=== PATIENT | male | born 2005 | race Caucasian/White ===

== ENCOUNTER 2024-01-17 23:51 | Emergency (ER) | payer MEDICAID ==
[~2024-01-17] VITALS: Ht 185.4 cm; Wt 74.2 kg
[2024-01-17 23:53] VITALS: BP 109/70; PULSE 55; RESP 16; TEMP 98.5; O2SAT 98
[2024-01-18 00:41] LABS: STREP A SCREEN NEGATIVE (Neg)
[2024-01-18] MEDS: amox tr/potassium clavulanate 875/125mg TAB PO ONE (01:39)
[2024-01-18] MEDS: dexamethasone 4mg tablet PO ONE (01:39)
[2024-01-18] MEDS: acetaminophen 325mg tablet PO ONE (01:40)
[2024-01-18] MEDS: ibuprofen tablet 400 MG TABLET PO ONE (01:40)
[2024-01-18] MEDS: LIDOcaine 2% Viscous 15ml cup MM ONE (01:51)
[2024-01-18] MEDS ORDERED: PRED20TA PO (02:16)
[2024-01-18] MEDS ORDERED: AMOX-115 PO (02:16)
== END 2024-01-18 02:27 | disposition home or self-care (01) ==
LOC: ER 23:52
DX: J36 Peritonsillar abscess (principal)
CPT/HCPCS: 42700; 87081; 87880; 99284

== ENCOUNTER 2024-03-25 09:08 | Emergency (ER) | payer MEDICAID ==
[~2024-03-25] VITALS: Ht 188 cm; Wt 81.8 kg
[2024-03-25] MEDS ORDERED: PENI500T2 PO (10:28)
[2024-03-25] MEDS ORDERED: penicillin G benzathine 1.2 million unit/2ml syringe IM ONE (10:30)
[2024-03-25] MEDS: PENICILLIN G BENZATHINE 2,400,000 UNIT/4 ML SYRINGE IM ONE (10:46)
[2024-03-25 10:52] VITALS: BP 118/68; PULSE 80; RESP 18; TEMP 98.5; O2SAT 99
== END 2024-03-25 10:52 | disposition home or self-care (01) ==
LOC: ER 09:08
DX: J02.9 Acute pharyngitis, unspecified (principal)
CPT/HCPCS: 96372; 99283; J0561

== ENCOUNTER 2024-04-19 00:02 | Emergency (ER) | payer MEDICAID ==
[~2024-04-19] VITALS: Ht 188 cm; Wt 83.0 kg
[2024-04-19 00:07] VITALS: BP 128/58; PULSE 57; RESP 18; O2SAT 95
[2024-04-19] MEDS ORDERED: AMOX500C2 PO (02:32)
[2024-04-19] MEDS ORDERED: HYDR-3965 PO (02:32)
[2024-04-19 02:35] VITALS: TEMP 98.5
[2024-04-19] MEDS: amoxicillin 250mg capsule PO ONE (02:36)
[2024-04-19] MEDS: ibuprofen tablet 400 MG TABLET PO ONE (02:36)
[2024-04-19] MEDS: acetaminophen 325mg tablet PO ONE (02:37)
[2024-04-19] MEDS: ondansetron 4mg rapidly disintigrating tab PO ONE (02:37)
== END 2024-04-19 02:42 | disposition home or self-care (01) ==
LOC: ER 00:03
DX: K08.89 Other specified disorders of teeth and supporting structures (principal)
CPT/HCPCS: 99284

== ENCOUNTER 2024-08-22 08:29 | Emergency (ER) | payer MEDICAID ==
[~2024-08-22] VITALS: Ht 182.9 cm; Wt 85.4 kg
[2024-08-22 08:33] VITALS: BP 139/63; PULSE 96; RESP 16; TEMP 99.8; O2SAT 98
[2024-08-22 09:23] LABS: STREP A SCREEN NEGATIVE (Neg)
[2024-08-22] MEDS ORDERED: AMOX-580 PO (09:36)
--- NOTE | 2024-08-22 09:36 | Physician Documentation ---
History of Present Illness ~ Chief Complaint: Sore Throat Stated Complaint: SORE THROAT Time Seen by MD: 09:05 OK to notify your PCP?: Yes Primary Medical Doctor: NONE Source: patient Mode of Arrival: POV Exam Limitations: no limitations HPI 19-year-old male with chief complaint sore throat which he states started yesterday. He is concerned because he has a history of a peritonsillar abscess in January of last year and he states it feels the same but when he had the peritonsillar abscess he states he waited about 72hours before coming to the ER so he was trying to catch this earlier. Patient reports that when he was treated for the peritonsillar abscess he was given antibiotics but ended up returning 24 hours later due to not feeling any better and was then given an injection of dexamethasone which seem to give him the greatest benefit. He is hoping he can get another shot of dexamethasone today. He has an appointment to get established with ENT next month he states he had to wait six months but does have this appointment coming up. He states it hurts him to swallow but he is able to. He feels feverish but does not have a temperature. No pre arrival treatment. He denies neck pain, shortness of breath, headache, ear pain, chest pain, cough, rashes. Medication Reconciliation Allergies: Coded Allergies: No Known Allergies (Unverified , 01/18/24) Scheduled Amox Tr/Potassium Clavulanate 875/125 MG (Augmentin 875/125 MG), 1 TAB PO Q12H Past Medical History Past Medical History: *ENT* (peritonsillar abscess) Review of Systems All Other Systems at this time: Reviewed and Negative Physical Exam Vital Signs: Temperature: 99.8, Source: Oral, Heart Rate: 96, Respiratory Rate: 16, BP: 139/63, Pulse Oximetry: 98, Weight: 85.400 Oxygen Flow Rate: 0 Physical Exam GENERAL: Alert, no acute distress. HEENT: NCAT, EOMI, PERRL, ERYTHEMATOUS POSTERIOR PHARYNGEAL WALL AND TONSILS, TONSILS ARE ENLARGED, LEFT SLIGHTLY MORE THAN RIGHT, UVULA IS MIDLINE, VOICE SOUNDS NORMAL, NOT MUFFLED, SWALLOWING SECRETIONS NORMALLY. NECK: Supple, trachea midline. SUBMANDIBULAR LAD BILATERALLY WITH TTP, NO OTHER CERVICAL LAD. CARDIAC: Regular rate and rhythm, no murmurs, rubs, or gallops. Equal distal pulses. No lower extremity edema, cap refill less than 2 seconds. RESPIRATORY: Equal breath sounds, clear to auscultation bilaterally, no respiratory distress. MUSCULOSKELETAL: Normal gait. NEUROLOGICAL: Awake, alert, and oriented x 3. SKIN: Warm/dry, no pallor, no rash. PSYCH: Alert and appropriate. Affect congruent with mood. Speech is clear. Good eye contact. Progress Results/Orders Results/Orders Orders - DEUCE GRAMAJO Cult Throat + R/O Beta Strep (08/22/24 09:15) Dexamethasone Inj (Decadron 10mg/Ml Inj) (08/22/24 09:47) Completed Orders - DEUCE GRAMAJO Strep A Rapid (08/22/24 09:07) Vital Signs 08/22/24 08:33 Temp 99.8 Pulse 96 Resp 16 B/P (MAP) 139/63 Pulse Ox 98 O2 Flow Rate 0 Laboratory Tests Test 08/22/24 09:07 Group A Streptococcus Rapid Negative Medical Decision Making Throat Diff Dx: Considerations: Include: AIDS, Epiglottitis, Esophageal candidiasis, Hand foot mouth disease, Herpangina, Herpetic stomatitis, Herpes simplex, Infection mononucleosis, Immunodeficiency, Eladio's angina, Peritonsillar abscess, Peritonsillar cellulitis, Pharyngitis-diphtheria, Pharyngitis-strepococcal, Pharyngitis-viral, Thrush, URI, Other Additional Comment NO SWELLING OR BULGING OF SOFT PALATE, UVULA MIDLINE NO EVIDENCE TODAY FOR PERITONSILLAR ABSCESS, GIVEN HISTORY HOWEVER I TREATED WITH STEROIDS AND ANTIBIOTICS PER OUR RECORDS PATIENT'S PERITONSILLAR ABSCESS TREATED IN JANUARY 2024 WAS STREP NEGATIVE WELL. Departure Time of Disposition: 09:53 Disposition: HOME / SELF CARE / HOMELESS Impression: Primary Impression: Swelling of tonsil Additional Impression: History of peritonsillar abscess Condition: Stable Discharge Instructions: Tonsillitis Additional Instructions: given history of peritonsillar abscess and findings on exam, even though strep swab was negative, I am still going to treat you with antibiotics as when you had the peritonsillar abscess it was negative for strep as well antibiotic sent to pharmacy Referrals: NO PRIMARY CARE PROVIDER (PCP) Prescriptions Amox Tr/Potassium Clavulanate 875/125 MG (Augmentin 875/125 MG) 875 Mg-125 Mg Tablet 1 TAB PO Q12H for 10 Days, #20 TAB Prov: DEUCE GRAMAJO 08/22/24 Education Educated: Patient Educated regarding: diagnosis, treatment, need for follow up Signature Scribe Signature: Zachary Attestation: DEUCE SCHROEDER August 22, 2024 09:36
[2024-08-22] MEDS: dexamethasone sod phosphate 10mg/ml inj IM STA (09:57)
== END 2024-08-22 10:02 | disposition home or self-care (01) ==
LOC: ER 08:30
DX: R22.1 Localized swelling, mass and lump, neck (principal); J02.9 Acute pharyngitis, unspecified
CPT/HCPCS: 87081; 87880; 96372; 99283; J1100